=== PATIENT | male | born 1980 | race African-American/Black ===

== ENCOUNTER 2020-06-09 17:32 | Emergency (ER) | payer BC ==
[~2020-06-09] VITALS: Ht 188 cm; Wt 85.1 kg
[2020-06-09 17:41] VITALS: BP 136/99
[2020-06-09 18:00] LABS: BILIRUBIN,URINE NEGATIVE (NEG); CLARITY,URINE CLOUDY; COLOR,URINE YELLOW; NITRITE,URINE NEGATIVE (NEG); PH,URINE 6.5 (<5.0-8.0); PROTEIN,URINE 30 mg/dL (NEG-TRACE)
[2020-06-09 18:13] LABS: AMORPHOUS SEDIMENT,UR PRESENT /HPF; BACTERIA,URINE 0 /HPF (0-FEW); RBC,URINE RARE /HPF (0-2)
--- NOTE | 2020-06-09 18:19 | PHYS DOC ---
Past Medical History Past Medical History: No Pertinent History (CARLOS HERNANDEZ APRN) Past Surgical History: Appendectomy, Other Additional Past Surgical Histo: L TIB/FIB ORIF (MARYCARLOS BROWN) Smoking Status: Current Every Day Smoker Additional Information: 0.5 PPD Alcohol Use: Occasionally (CARLOS HERNANDEZ APRN) General Adult EDM: Chief Complaint: PAIN ON URINATION HPI: HPI: Patient is a 39 year old male who presents to the ED today complaining of penile wounds and dysuria that began 3 days ago after having intercourse. (MARYCARLOS BROWN) Review of Systems: Review of Systems: Constitutional: Denies fever or chills. [] GI: Denies abdominal pain, nausea, vomiting, bloody stools or diarrhea. [] : Reports penile wounds and dysuria Musculoskeletal: Denies back pain or joint pain. [] Integument: Denies rash. [] Neurologic: Denies headache, focal weakness or sensory changes. [] Psychiatric: Denies depression or anxiety. [] (CARLOS HERNANDEZ APRN) Heart Score: Risk Factors: Risk Factors: DM, Current or recent (<one month) smoker, HTN, HLP, family history of CAD, obesity. Risk Scores: Score 0 - 3: 2.5% MACE over next 6 weeks - Discharge Home Score 4 - 6: 20.3% MACE over next 6 weeks - Admit for Clinical Observation Score 7 - 10: 72.7% MACE over next 6 weeks - Early Invasive Strategies (CARLOS HERNANDEZ APRN) Allergies: Allergies: Allergies Coded Allergies Type Severity Reaction Last Updated Verified No Known Drug Allergies 06/09/20 No (CARLOS HERNANDEZ APRN) Physical Exam: PE: Constitutional: Well developed, well nourished, no acute distress, non-toxic appearance. [] Male exam with RN as a transportation associate Uncircumcised. Patient himself retracted the penis tip of foreskin with small amount of open wounds suspicious of herpes infection. Skin: Warm, dry, no erythema, no rash. [] Back: No tenderness, no CVA tenderness. [] Extremities: No tenderness, no cyanosis, no clubbing, ROM intact, no edema. [] Neurologic: Alert and oriented X 3, normal motor function, normal sensory function, no focal deficits noted. [] Psychologic: Affect normal, judgement normal, mood normal. [] (CARLOS HERNANDEZ APRN) Current Patient Data: Vital Signs: Vital Signs Date Time Temp Pulse Resp B/P (MAP) Pulse Ox O2 Delivery O2 Flow Rate FiO2 06/09/20 17:41 98.9 75 20 136/99 (111) 95 Room Air 98.9 (CARLOS HERNANDEZ APRN) EKG: EKG: [] (CARLOS HERNANDEZ APRN) Radiology/Procedures: Radiology/Procedures: [] (CARLOS HERNANDEZ APRN) Course & Med Decision Making: Course & Med Decision Making Pertinent Labs and Imaging studies reviewed. (See chart for details) This is a 39-year-old male patient presented to the ED today complaining of penile soles and dysuria that began after having intercourse 3 days ago. Physical exam of the penis looks like herpes lesions. He was tested for herpes. Urine positive for moderate amount of leukocytes. Patient was given Rocephin and doxycycline started in the ED. Acyclovir also started. Discharge to home with acyclovir and doxycycline. Provided STD education as well as follow-up information. (CARLOS HERNANDEZ APRN) Dragon Disclaimer: Dragon Disclaimer: This electronic medical record was generated, in whole or in part, using a voice recognition dictation system. (CARLOS HERNANDEZ APRN) Departure Departure Impression: Primary Impression: Concern about STD in male without diagnosis Additional Impressions: UTI (urinary tract infection) Qualified Codes: N39.0 - Urinary tract infection, site not specified Genital herpes Qualified Codes: A60.01 - Herpesviral infection of penis Disposition: 01 DC HOME SELF CARE/HOMELESS Condition: STABLE Patient Instructions: Genital Herpes, Sexually Transmitted Disease, [id number] Additional Instructions: You were evaluated in the emergency room and started on sexually transmitted diseases treatment. Please do not have any sexual intercourse for 2 weeks. The lesions you have on your penis are concerning for herpes. We started you on medications, take them as prescribed. Contact all your sex partners, let them know you were treated for STDs and have them seek treatment to the. Use protection at all times Scripts Doxycycline Hyclate (DOXYCYCLINE HYCLATE) 100 Mg Tablet 1 TAB PO BID, #14 TAB Prov: CARLOS HERNANDEZ APRN 06/09/20 Acyclovir (ACYCLOVIR) 800 Mg Tablet 1 TAB PO 5XDAY, #50 TAB Prov: VASQUEZVeronicaCARLOS APRN 06/09/20 Attending Signature Attending Signature I have reviewed the PA/COATING MACHINE OPERATOR HELPER's note and plan of care. I was available for consultation as needed during the patient's visit in the emergency department. I agree with the clinical impression, plan, and disposition. (ANGELLA JOSÉ DO) CARLOS HERNANDEZ APRN Jun 09, 2020 18:19 ANGELLA JOSÉ DO Jun 10, 2020 04:20
[2020-06-09] MEDS ORDERED: ACYCLOVIR 200 MG CAPSULE. PO STA (18:37)
[2020-06-09] MEDS ORDERED: ACYC800T88 PO (18:45)
[2020-06-09] MEDS ORDERED: DOXY100T PO (18:45)
[2020-06-09] MEDS ORDERED: cefTRIAXone IM 250 MG VIAL IM ONE (18:45)
[2020-06-09] MEDS ORDERED: DOXYCYCLINE HYCLATE 100 MG TABLET PO ONE (18:45)
[2020-06-14 13:16] LABS: HERPES SIMPLEX TYPE 1 Negative (Negative); HERPES SIMPLEX TYPE 2 Positive (Negative)
== END 2020-06-09 19:34 | disposition home or self-care (01) ==
LOC: ER 17:32
DX: N39.0 Urinary tract infection, site not specified (principal); A60.01 Herpesviral infection of penis; R30.0 Dysuria; F17.200 Nicotine dependence, unspecified, uncomplicated; Z90.89 Acquired absence of other organs; Z98.890 Other specified postprocedural states
CPT/HCPCS: 81001; 87086; 87491; 87529; 87591; 96372; 99283; J0696; 36415

== ENCOUNTER 2020-07-06 19:35 | Emergency (ER) | payer BC ==
[~2020-07-06] VITALS: Ht 188 cm; Wt 79.5 kg
[~2020-07-06 19:35] MED LIST: ACYC800T PO; DOXY100T PO
[2020-07-06 20:25] VITALS: BP 119/84
[2020-07-06 20:56] LABS: BASO # 0.1 x10^3/uL (0.0-0.2); BASO % 1 % (0-3); EOS # 0.3 x10^3/uL (0.0-0.7); EOS % 4 % (0-3); HEMATOCRIT 43.6 % (39.0-53.0); HEMOGLOBIN 14.1 g/dL (13.0-17.5); LYMPH # 2.1 x10^3/uL (1.0-4.8); LYMPH % 30 % (24-48); MEAN CORPUSCULAR HEMOGLOBIN 31 pg (25-35); MEAN CORPUSCULAR HGB CONC 32 g/dL (31-37); MEAN CORPUSCULAR VOLUME 96 fL (79-100); MONO # 0.8 x10^3/uL (0.0-1.1); MONO % 12 % (0-9); NEUT # 3.8 x10^3/uL (1.8-7.7); NEUT % 54 % (31-73); PLATELET COUNT 225 x10^3/uL (140-400); RED BLOOD COUNT 4.55 x10^6/uL (4.30-5.70); RED CELL DISTRIBUTION WIDTH 12.6 % (11.5-14.5); WHITE BLOOD COUNT 7.1 x10^3/uL (4.0-11.0)
[2020-07-06 21:06] LABS: CALCIUM 8.9 mg/dL (8.5-10.1); CREATININE 1.1 mg/dL (0.7-1.3); GFR 91.1; POTASSIUM 3.8 mmol/L (3.5-5.1)
[2020-07-06] MEDS ORDERED: CONTRAST GIVEN. MC PRN (21:45)
[2020-07-06] MEDS ORDERED: IOHEXOL 300 MG/ML 100ML VIAL. IV ONE (22:00)
--- NOTE | 2020-07-06 22:00 | RAD ---
Exam: CT neck with contrast INDICATION: Abscess left-sided neck TECHNIQUE: Sequential axial images through the neck obtained following the administration of 75 mL of Isovue-370 IV contrast. Sagittal and coronal reformatted images were reconstructed from the axial da ta and reviewed. Comparisons: None FINDINGS: Visualized cranial structures are unremarkable. Globes and intraorbital contents are unremarkable. Vi sualized portions of paranasal sinuses and mastoid air cells are well-pneumatized. Cervical vasculature is patent. Nasopharynx, oropharynx, hypopharynx and larynx are unremarkable. Thyroid and salivary glands are within normal limits. There is a 1.7 cm fluid collection underneath the skin surface at the left neck laterally series 2 im age 54. There is adjacent fat stranding and skin thickening. Several prominent but not enlarged left cervical lymph nodes are noted. There is a 6 mm nodule right lower lobe. Additionally there is a 6 mm nodule at the right upper lobe on image 29. Moderate centrilobular emphysematous changes noted. No suspicious osseous lesions or acute fractures. IMPRESSION: 1. A 1.7 cm fluid collection just underneath the skin surface at the left neck laterally with adjace nt fat stranding and edema concerning for infection. 2. Numerous adjacent prominent mildly enlarged lymph nodes, likely reactive 3. Several subcentimeter pulmonary nodules in the visualized upper lobes. Nonemergent CT chest is re commended to fully assess. Exposure: One or more of the following in the visualized dose reduction techniques were utilized for this examination: 1. Automated exposure control 2. Adjustment of the MA and/or KV according to patient size 3. Use of iterative of reconstructive technique Electronically signed by: Yovana Gates MD (07/06/2020 9:58 PM) [facility]
[2020-07-06] MEDS ORDERED: LIDOCAINE 1% PF 2 ML VIAL. INJ ONE (22:30)
[2020-07-06] MEDS ORDERED: CLIN150C15 PO (22:44)
[2020-07-06] MEDS ORDERED: HYDR-2761 PO (22:44)
--- NOTE | 2020-07-06 22:44 | ED.ADGEN ---
Past Medical History Past Medical History: No Pertinent History Past Surgical History: Appendectomy, Other Additional Past Surgical Histo: L TIB/FIB ORIF Smoking Status: Current Every Day Smoker Alcohol Use: Occasionally General Adult EDM: Chief Complaint: ABSCESS HPI: HPI: Patient is a 39 year old AA male who presents to the emergency department with complaints of left swollen tender area to the left side of his neck for the last week. Patient states that initially he had squeezed the area and a small amount of pus came out. Patient states that the area continued to get bigger and has since become very painful. He denies any fever, difficulty speaking, sore throat, body aches, fatigue, nausea, vomiting, ear pain, or dental pain. He denies any numbness, tingling or decreased sensation of the affected area. He currently rates the pain a 6 out of 10 on the pain scale and describes it as a burning sensation. He denies any alleviating factors, the pain is worse if the area is touched. Review of Systems: Review of Systems: Complete ROS is negative unless otherwise noted in HPI. Current Medications: Current Medications Medications (Trade) Dose Ordered Sig/Alana Start Time Stop Time Status Last Admin Dose Admin Info (CONTRAST GIVEN -- Rx MONITORING) 1 each PRN DAILY PRN 07/06/20 21:45 07/06/20 23:05 DC Iohexol (Omnipaque 300 Mg/ml) 75 ml 1X ONCE 07/06/20 22:00 07/06/20 22:01 DC 07/06/20 22:20 75 ML Lidocaine HCl (Xylocaine-Mpf 1% 2ml Vial) 4 ml 1X ONCE 07/06/20 22:30 07/06/20 22:31 DC 07/06/20 22:22 4 ML Allergies: Allergies: Allergies Coded Allergies Type Severity Reaction Last Updated Verified No Known Drug Allergies 06/09/20 No Physical Exam: PE: See Above Constitutional: Well developed, well nourished, no acute distress, non-toxic appearance. [] HENT: Normocephalic, atraumatic, bilateral external ears normal, nose normal. [] Eyes: PERRLA, EOMI, conjunctiva normal, no discharge. [] Neck: Normal range of motion, supple, no bony tenderness or deformity, no stridor. [] Cardiovascular:Heart rate regular rhythm Lungs & Thorax: Respirations even and unlabored, no retractions, no respiratory distress Skin: Warm, dry, no rash; 2 cm diameter warm, swollen, area noted to the left side of patient's neck with no visible pustule, the area is fluctuant and tender to palpation concerning for abscess Extremities: No cyanosis, ROM intact, no edema. [] Neurologic: Alert and oriented X 3, no focal deficits noted. [] Psychologic: Affect normal, judgement normal, mood normal. [] Current Patient Data: Labs: Laboratory Tests Test 07/06/20 20:45 White Blood Count 7.1 x10^3/uL (4.0-11.0) Red Blood Count 4.55 x10^6/uL (4.30-5.70) Hemoglobin 14.1 g/dL (13.0-17.5) Hematocrit 43.6 % (39.0-53.0) Mean Corpuscular Volume 96 fL (79-100) Mean Corpuscular Hemoglobin 31 pg (25-35) Mean Corpuscular Hemoglobin Concent 32 g/dL (31-37) Red Cell Distribution Width 12.6 % (11.5-14.5) Platelet Count 225 x10^3/uL (140-400) Neutrophils (%) (Auto) 54 % (31-73) Lymphocytes (%) (Auto) 30 % (24-48) Monocytes (%) (Auto) 12 % (0-9) H Eosinophils (%) (Auto) 4 % (0-3) H Basophils (%) (Auto) 1 % (0-3) Neutrophils # (Auto) 3.8 x10^3/uL (1.8-7.7) Lymphocytes # (Auto) 2.1 x10^3/uL (1.0-4.8) Monocytes # (Auto) 0.8 x10^3/uL (0.0-1.1) Eosinophils # (Auto) 0.3 x10^3/uL (0.0-0.7) Basophils # (Auto) 0.1 x10^3/uL (0.0-0.2) Sodium Level 136 mmol/L (136-145) Potassium Level 3.8 mmol/L (3.5-5.1) Chloride Level 103 mmol/L (98-107) Carbon Dioxide Level 25 mmol/L (21-32) Anion Gap 8 (6-14) Blood Urea Nitrogen 10 mg/dL (8-26) Creatinine 1.1 mg/dL (0.7-1.3) Estimated GFR (Cockcroft-Gault) 91.1 Glucose Level 89 mg/dL (70-99) Calcium Level 8.9 mg/dL (8.5-10.1) Laboratory Tests 07/06/20 20:45 Laboratory Tests 07/06/20 20:45 Vital Signs: Vital Signs Date Time Temp Pulse Resp B/P (MAP) Pulse Ox O2 Delivery O2 Flow Rate FiO2 07/06/20 20:25 98.7 84 16 119/84 (96) 99 Room Air 98.7 EKG: EKG: [] Heart Score: Risk Factors: Risk Factors: DM, Current or recent (<one month) smoker, HTN, HLP, family history of CAD, obesity. Risk Scores: Score 0 - 3: 2.5% MACE over next 6 weeks - Discharge Home Score 4 - 6: 20.3% MACE over next 6 weeks - Admit for Clinical Observation Score 7 - 10: 72.7% MACE over next 6 weeks - Early Invasive Strategies Radiology/Procedures: Radiology/Procedures: PROCEDURE: CT SOFT TISSUE NECK W/CONTRAST Exam: CT neck with contrast INDICATION: Abscess left-sided neck TECHNIQUE: Sequential axial images through the neck obtained following the administration of 75 mL of Isovue-370 IV contrast. Sagittal and coronal reformatted images were reconstructed from the axial data and reviewed. Comparisons: None FINDINGS: Visualized cranial structures are unremarkable. Globes and intraorbital contents are unremarkable. Visualized portions of paranasal sinuses and mastoid air cells are well-pneumatized. Cervical vasculature is patent. Nasopharynx, oropharynx, hypopharynx and larynx are unremarkable. Thyroid and salivary glands are within normal limits. There is a 1.7 cm fluid collection underneath the skin surface at the left neck laterally series 2 image 52. There is adjacent fat stranding and skin thickening. Several prominent but not enlarged left cervical lymph nodes are noted. There is a 6 mm nodule right lower lobe. Additionally there is a 6 mm nodule at the right upper lobe on image 29. Moderate centrilobular emphysematous changes noted. No suspicious osseous lesions or acute fractures. IMPRESSION: 1. A 1.7 cm fluid collection just underneath the skin surface at the left neck laterally with adjacent fat stranding and edema concerning for infection. 2. Numerous adjacent prominent mildly enlarged lymph nodes, likely reactive 3. Several subcentimeter pulmonary nodules in the visualized upper lobes. Nonemergent CT chest is recommended to fully assess. Exposure: One or more of the following in the visualized dose reduction techniques were utilized for this examination: 1. Automated exposure control 2. Adjustment of the MA and/or KV according to patient size 3. Use of iterative of reconstructive technique Electronically signed by: Yovana Gates MD (07/06/2020 9:58 PM) [facility] Indication: abscess Procedure: The patient was positioned appropriately. Local anesthesia was 1% lidocaine. An incision was then made over the apex of the lesion with an #11 blade scalpel and a large amount of bloody pus material was expressed. The drainage cavity was then packed with sterile half-inch iodoform gauze. The pa tients tetanus status was up-to-date. The patient tolerated the procedure well. Complications: none. [] [] Course & Med Decision Making: Course & Med Decision Making Pertinent Labs and Imaging studies reviewed. (See chart for details) 39-year-old male presenting with complaints of an abscess to the left side of his neck for the last week. Imaging revealed that it was a superficial cutaneous abscess. Incision and drainage as documented above. Prescriptions written for clindamycin and hydrocodone. The patient was instructed to return to the emergency room in 48 hours for packing removal annual recheck, return sooner if symptoms worsen or fever develops. Patient verbalized an understanding of home care, medications, follow-up, and return to ED instructions and was in agreement with the plan of care. Nadine Disclaimer: Nadine Disclaimer: This electronic medical record was generated, in whole or in part, using a voice recognition dictation system. Departure Departure Impression: Primary Impression: Cutaneous abscess of neck Disposition: 01 DC HOME SELF CARE/HOMELESS Condition: STABLE Referrals: NO PCP (PCP) Patient Instructions: Abscess, Care After, Abscess, [id number] Additional Instructions: Fill the prescription(s) and use as directed. Leave the Dressing that was placed in the ER in place for the next 24 hours, then change the dressing twice daily and apply antibiotic ointment as needed. You may apply warm, moist packs to the area to help decrease discomfort. Follow up with your primary care doctor or return to the ER in 48 hours to have wound rechecked and packing removed. Return to the ER sooner if your symptoms worsen or fever develops. Scripts Hydrocodone Bit/Acetaminophen (HYDROCODONE-APAP 5-325 ) 1 Tab Tablet 1 TAB PO PRN Q6HRS PRN for PAIN for 3 Days, #12 TAB 0 Refills Prov: KAELYN LUONG WELFARE ELIGIBILITY WORKER 07/06/20 Clindamycin Hcl (CLINDAMYCIN HCL) 150 Mg Capsule 450 MG PO TID for 10 Days, #90 CAP 0 Refills Prov: KAELYN LUONG WELFARE ELIGIBILITY WORKER 07/06/20 KAELYN LUONG WELFARE ELIGIBILITY WORKER Jul 06, 2020 22:44
== END 2020-07-06 23:00 | disposition home or self-care (01) ==
LOC: ER 19:35
DX: L02.11 Cutaneous abscess of neck (principal); F17.200 Nicotine dependence, unspecified, uncomplicated
CPT/HCPCS: 10060; 36415; 70491; 80048; 85025; 99285; J3490; Q9967; 99284

== ENCOUNTER 2020-07-08 11:29 | Emergency (ER) | payer BC ==
[~2020-07-08 11:29] MED LIST changes: +CLIN150C15 PO; +HYDR-2761 PO
[2020-07-08] MEDS ORDERED: NEOMY/BACITR/POLYMYXIN OINT PACKET. TP ONE ×2 (12:20→13:02)
== END 2020-07-08 13:38 | disposition home or self-care (01) ==
LOC: ER 11:29
DX: L02.11 Cutaneous abscess of neck (principal); F17.200 Nicotine dependence, unspecified, uncomplicated
CPT/HCPCS: 99283